=== PATIENT | female | born 2000 | race American Indian/Alaskan Native ===

== ENCOUNTER 2020-09-03 20:00 | Outpatient (CLI) | payer MEDICAID ==
[2020-09-03 20:55] VITALS: BP 123/82
--- NOTE | 2020-09-03 22:44 | Ultrasound Report ---
ULTRASOUND OBSTETRIC LIMITED ULTRASOUND BIOPHYSICAL PROFILE INDICATION / CLINICAL INFORMATION: BPP. COMPARISON: None available. FINDINGS: BREATHING MOVEMENT = 2 GROSS BODY MOVEMENT = 2 TONE = 2 QUALITATIVE AMNIOTIC FLUID VOLUME = 2 TOTAL BIOPHYSICAL SCORE = 8/8 HEART RATE (beats per minute): 145 AMNIOTIC FLUID INDEX (cm) = 7.1 (normal = 7-24 cm) PRESENTATION: Cephalic. ADDITIONAL FINDINGS: None. IMPRESSION: 1. Biophysical Score = 8/8 Signer Name: Junior Silva MD Signed: 09/03/2020 10:40 PM Workstation Name: [email or web address]
--- NOTE | 2020-09-04 00:15 | Event Note ---
Date: 09/03/20 40 3/7 weeks gestation here for BPP and JORGE due to being a few days past her due date. Patient reports active movement. Denies regular contractions, LOF, or VB. BPP /. JORGE 7.1. NST reactive. Discussed results with patient. Offered pt. to stay and be induced. Patient refuses to be induced today. Agrees to have IOL scheduled for 09/07/2020. Discussed with patient daily movement counting, signs of labor, and warning signs of late .
== END 2020-09-03 23:46 | disposition home or self-care (01) ==
LOC: TRG 20:00 → APU 20:03 → TRG 23:46
PROVIDERS: ATTEND Obstetrics & Gynecology
DX: O47.1 False labor at or after 37 completed weeks of gestation (principal); Z3A.40 40 weeks gestation of pregnancy
CPT/HCPCS: 59025; 76815; 76819

== ENCOUNTER 2020-09-07 15:43 | Outpatient (CLI) | payer MEDICAID ==
[2020-09-07 16:32] VITALS: BP 125/66
--- NOTE | 2020-09-07 21:43 | Ultrasound Report ---
ULTRASOUND OBSTETRIC LIMITED ULTRASOUND BIOPHYSICAL PROFILE INDICATION / CLINICAL INFORMATION: wellbeing. Clinical Gestational Age (GA): 41.0 weeks.days COMPARISON: None available. FINDINGS: BREATHING MOVEMENT = 2 GROSS BODY MOVEMENT = 2 TONE = 2 QUALITATIVE AMNIOTIC FLUID VOLUME = 2 TOTAL BIOPHYSICAL SCORE = 8/8 HEART RATE (beats per minute): 141 AMNIOTIC FLUID INDEX (cm) = 10.3 (normal = 7-24 cm) PRESENTATION: Cephalic. ADDITIONAL FINDINGS: None. IMPRESSION: 1. Biophysical Score = 8/8 Signer Name: Zaid Broussard MD Signed: 09/07/2020 9:42 PM Workstation Name: [email or web address]
== END 2020-09-07 19:40 | disposition home or self-care (01) ==
LOC: TRG 15:43 → APU 15:45 → TRG 19:40
PROVIDERS: ATTEND Obstetrics & Gynecology
DX: O47.1 False labor at or after 37 completed weeks of gestation (principal); Z3A.41 41 weeks gestation of pregnancy
CPT/HCPCS: 59025; 76815; 76819